=== PATIENT | female | born 1980 | race American Indian/Alaskan Native ===

== ENCOUNTER 2019-03-10 17:29 | Emergency (ER) | payer SELFPAY ==
[2019-03-10 17:57] VITALS: BP 155/92
[2019-03-10] MEDS ORDERED: IBUPROFEN 600 MG TAB PO ONE ×2 (18:09→18:12)
--- NOTE | 2019-03-10 18:14 | Emergency Department Report ---
ED General Adult HPI - General Chief complaint: Upper Respiratory Infection Stated complaint: HEAD/NECK/BODY PAIN Time Seen by Provider: 03/10/19 18:06 Source: patient Mode of arrival: Ambulatory Limitations: No Limitations - History of Present Illness Initial comments: 39 yo AA F pt complains of sore throat and body aches x yesterday. 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 Rates pain at a 8/10 in severity. +Painful swallowing, but denies difficulty swallowing. States positive tactile fever at home. Has not tried any OTC medications. Associated Symptoms: denies other symptoms - Related Data Previous Rx's Medication Instructions Recorded Last Taken Type Amoxicillin [Trimox CAP] 500 mg PO BID #20 capsule 03/10/19 Unknown Rx Allergies Allergy/AdvReac Type Severity Reaction Status Date / Time No Known Allergies Allergy Unverified 03/10/19 17:53 ED Review of Systems ROS: Stated complaint: HEAD/NECK/BODY PAIN Other details as noted in HPI Constitutional: chills, fever, malaise Eyes: denies: eye pain, eye discharge ENT: throat pain. denies: congestion Respiratory: denies: cough, shortness of breath Cardiovascular: denies: chest pain Gastrointestinal: denies: abdominal pain, nausea, vomiting, diarrhea Skin: denies: rash, lesions, change in color Neurological: denies: headache, weakness ED Past Medical Hx - Past Medical History Previous Medical History?: No Hx Hypertension: Yes - Surgical History Past Surgical History?: Yes Additional Surgical History: breast - Social History Smoking Status: Never Smoker Substance Use Type: None - Medications Home Medications: Home Medications Medication Instructions Recorded Confirmed Last Taken Type Amoxicillin [Trimox CAP] 500 mg PO BID #20 capsule 03/10/19 Unknown Rx ED Physical Exam - General Limitations: No Limitations General appearance: alert, in no apparent distress - Head Head exam: Present: atraumatic, normocephalic - Eye Eye exam: Present: normal appearance - Expanded ENT Exam Expanded Mouth exam: Present: tongue normal. Absent: drooling, trismus, muffled voice Teeth exam: Present: normal inspection Throat exam: Positive: tonsillar erythema, tonsillomegaly, tonsillar exudate. Negative: R peritonsillar mass, L peritonsillar mass - Neck Neck exam: Present: full ROM, lymphadenopathy - Respiratory Respiratory exam: Present: normal lung sounds bilaterally. Absent: respiratory distress - Cardiovascular Cardiovascular Exam: Present: regular rate, normal rhythm - Back Exam Back exam: Present: normal inspection, full ROM - Neurological Exam Neurological exam: Present: alert, oriented X3 - Psychiatric Psychiatric exam: Present: normal affect, normal mood - Skin Skin exam: Present: warm, dry, intact, normal color. Absent: rash ED Course Vital Signs 03/10/19 03/10/19 17:56 18:05 Temperature 97.1 F L 100.1 F H Pulse Rate 97 H 98 H Respiratory 16 18 Rate Blood Pressure 155/92 O2 Sat by Pulse 98 Oximetry ED Medical Decision Making - Medical Decision Making Pt here for throat pain x yesterday. +sick contacts at daycare that she works at. Fever of 100.1, +tonsillar erythema and exudates noted on exam. Vitals are otherwise wnl. Pt is stable for d/c home with treatment for strep pharyngitis. Pt to follow up with her PCP as needed. Discussed strict return precautions in detail with pt who states understanding. Critical care attestation.: If time is entered above; I have spent that time in minutes in the direct care of this critically ill patient, excluding procedure time. ED Disposition Clinical Impression: Strep pharyngitis Disposition: DC-01 TO HOME OR SELFCARE Is pt being admited?: No Condition: Stable Instructions: Strep Throat (ED) Prescriptions: Amoxicillin [Trimox CAP] 500 mg PO BID #20 capsule Referrals: PRIMARY CARE, [Referring] - as needed
== END 2019-03-10 18:28 | disposition home or self-care (01) ==
LOC: ED 17:29
DX: J02.0 Streptococcal pharyngitis (principal); I10 Essential (primary) hypertension; Z79.899 Other long term (current) drug therapy

== ENCOUNTER 2019-03-20 08:36 | Emergency (ER) | payer SELFPAY ==
[2019-03-20] MEDS ORDERED: IBUPROFEN 800 MG TAB PO ONE (11:00)
--- NOTE | 2019-03-20 11:03 | Emergency Department Report ---
Minor Respiratory - HPI Chief Complaint: Upper Respiratory Infection Stated Complaint: FLU SYM/CHEST PAIN/COUGH/WEAK Time Seen by Provider: 03/20/19 10:28 Duration: 2 Days Pain Location: Throat, Nose Severity: moderate Minor Respiratory: Yes Rhinorrhea, Yes Sore Throat, Yes Able to Tolerate Fluids, Yes Sick Contacts (work in daycare), Yes Fever, No Ear Pain, No Cough, No Hemoptysis, No Chest Pain, No Shortness of Breath Other History: This is a 39-year-old -[place] female who presents to the emergency room with myalgia, chills, headache, rhinorrhea for 2 days. Past medical history of hypertension. 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 She is currently not taking anything for symptomatic relief is time. She denies chest pain, dizziness, nausea, vomiting, diarrhea, or weakness. ED Review of Systems ROS: Stated complaint: FLU SYM/CHEST PAIN/COUGH/WEAK Other details as noted in HPI Constitutional: chills, fever ENT: throat pain, congestion. denies: ear pain Respiratory: denies: cough, shortness of breath, wheezing Cardiovascular: denies: chest pain, palpitations Gastrointestinal: denies: abdominal pain, nausea, diarrhea Musculoskeletal: myalgia. denies: back pain, joint swelling, arthralgia Skin: denies: rash, lesions Neurological: headache. denies: weakness, paresthesias Psychiatric: denies: anxiety, depression ED Past Medical Hx - Past Medical History Hx Hypertension: Yes - Surgical History Additional Surgical History: breast - Social History Smoking Status: Never Smoker Substance Use Type: None - Medications Home Medications: Home Medications Medication Instructions Recorded Confirmed Last Taken Type Amoxicillin [Trimox CAP] 500 mg PO BID #20 capsule 03/10/19 Unknown Rx Benzonatate [Tessalon Perles] 100 mg PO Q8HR PRN #30 capsule 03/20/19 Unknown Rx Oseltamivir [Tamiflu] 75 mg PO BID #10 cap 03/20/19 Unknown Rx Minor Respiratory Exam - Exam General: Vital signs noted. No distress. Alert and acting appropriately. HEENT: Yes Pharyngeal Erythema (erythematous posterior pharynx, uvula midline), Yes Moist Mucous Membranes, Yes Rhinorrhea (turbinates congested with clear discharge), No Pharyngeal Exudates, No Conjuctival Injection, No Frontal Tenderness, No Maxillary Tenderness Ear: Neither TM Bulge, Neither TM Erythema, Neither EAC Pain, Neither EAC Discharge Neck: Yes Supple, No Adenopathy Lungs: Yes Good Air Exchange, No Wheezes, No Ronchi, No Stridor, No Cough, No Labored Respirations, No Retractions, No Use of Accessory Muscles, No Other Abnormal Lung Sounds Heart: Yes Regular, No Murmur Abdomen: Yes Normal Bowel Sounds, No Tenderness, No Peritoneal Signs Skin: No Rash, No Edema Neurologic: Alert and oriented, no deficits. Musculoskeletal: Unremarkable. ED Course Vital Signs 03/20/19 08:41 Temperature 100.1 F H Pulse Rate 95 H Respiratory 18 Rate Blood Pressure 152/85 O2 Sat by Pulse 100 Oximetry ED Medical Decision Making - Lab Data Lab Results 03/20/19 Range/Units Unknown Influenza A (Rapid) Positive A (Negative) Influenza B (Rapid) Negative (Negative) Group A Strep Rapid Negative (Negative) - Medical Decision Making This is a 39 y.o. female with fever, cough, sore throat, and body aches for 2 days. Past medical history of hypertension. Given analgesics once in ER. Patient tolerating oral fluids in ER. Obtained rapid influenza and strep. Positi ve for influenza A, strep negative. Treat outpatient with supportive care. Start tamiflu and benzonatate. Discussed plan of care with patient who agreed with plan. Discharged home in stable condition. F/U with primary care doctor in [facility] in 2-3 days. Critical care attestation.: If time is entered above; I have spent that time in minutes in the direct care of this critically ill patient, excluding procedure time. ED Disposition Clinical Impression: Generalized body aches, Fever with chills, Influenza A Disposition: DC- TO HOME OR SELFCARE Is pt being admited?: No Condition: Stable Instructions: Influenza (ED) Additional Instructions: Avoid large crowds to prevent transmission of virus. Increase fluid intake to prevent dehydration. Wash hands frequently. Take Tylenol or ibuprofen every 4-6 hours for relief of headache, fever, and body aches. Return to school after 24 hours of being fever free. Follow up with roller picker in 2-3 days if symptoms are not improving. Prescriptions: Oseltamivir [Tamiflu] 75 mg PO BID #10 cap Benzonatate [Tessalon Perles] 100 mg PO Q8HR PRN #30 capsule PRN Reason: Cough Referrals: JEFFERSON WISE MD [Primary Care Provider] - 3-5 Days [facility] [Outside] - 3-5 Days [facility] [Outside] - 3-5 Days Forms: Work/School Release Form(ED) Time of Disposition: 12:41
[2019-03-20 13:03] VITALS: BP 150/81
== END 2019-03-20 13:01 | disposition home or self-care (01) ==
LOC: ED 08:36
DX: J09.X2 Influenza due to identified novel influenza A virus with other respiratory manifestations (principal); I10 Essential (primary) hypertension; Z79.899 Other long term (current) drug therapy
CPT/HCPCS: 87116; 87400; 87430